=== PATIENT | male | born 1960 | race Caucasian/White ===

== ENCOUNTER 2016-12-26 07:45 | Emergency (ER) | payer OTHER ==
[2016-12-26 08:07] LABS: BASOPHIL 0.4 % (0-2); EOSINOPHIL 1.7 % (0-5); HCT 40.1 % (42.0-52.0); HGB 14.6 g/dl (13.2-18.0); LYMPHOCYTE 14.8 % (15-48); MCH 29.9 pg (25.0-31.0); MCHC 36.4 g/dL (32.0-36.0); MONOCYTE 14.2 % (0-12); MPV 9.2 fL (6.0-9.5); NEUTROPHIL 68.9 % (41-80); PLT 301 K/uL (150-400); RBC 4.89 M/uL (4.70-6.00); RDW 13.4 % (11.5-14.0); WBC 7.8 K/uL (4.0-10.5)
[2016-12-26 08:26] LABS: CREATININE 0.8 mg/dL (0.7-1.2); POTASSIUM 3.7 mmol/L (3.5-5.1)
== END 2016-12-26 11:32 | disposition home or self-care (01) ==
LOC: FER 07:45
PROVIDERS: Internal Medicine
DX: F45.8 Other somatoform disorders (principal); I10 Essential (primary) hypertension; E78.5 Hyperlipidemia, unspecified; F41.9 Anxiety disorder, unspecified; Z87.442 Personal history of urinary calculi
CPT/HCPCS: 36415; 71010; 80048; 84484; 85025; 93005; J2060

== ENCOUNTER 2021-03-01 03:46 | Emergency (ER) | payer OTHER ==
[~2021-03-01 03:46] MED LIST: FLEXERIL5 MG PO; MEDROL 4MG DOSEP4 MG PO; NORVASC10 MG PO; PRILOSEC10 M1 PO; ZOCOR10 MG PO
[2021-03-01 04:06] LABS: BASOPHIL 0.3 % (0-2); EOSINOPHIL 1.2 % (0-5); HGB 14.7 g/dl (13.2-18.0); LYMPHOCYTE 10.3 % (15-48); MCHC 35.9 g/dL (32.0-36.0); MCV 83.7 fL (78.0-100.0); MONOCYTE 7.9 % (0-12); MPV 9.6 fL (6.0-9.5); NEUTROPHIL 80.1 % (41-80); NRBC 0; PLT 286 K/uL (150-400); WBC 12.6 K/uL (4.0-10.5)
[2021-03-01 04:17] LABS: PROTHROMBIN TIME 12.6 SECONDS (11.8-13.4); PTT 33.1 SECONDS (24.4-34.7)
[2021-03-01 04:28] LABS: IRON % SATURATION 10.1 %SAT (20-50)
[2021-03-01 04:31] LABS: BILIRUBIN NEGATIVE (NEGATIVE); BLOOD NEGATIVE Ery/uL (NEGATIVE); CLARITY CLEAR (CLEAR); COLOR YELLOW (YELLOW); GLUCOSE (U) NORMAL (NORMAL); LEUKOCYTES NEGATIVE Leu/uL (NEGATIVE); NITRITE NEGATIVE (NEGATIVE); PROTEIN NEGATIVE (NEGATIVE); pH 7.5 (5.0-9.0)
[2021-03-01 04:32] LABS: ALBUMIN 4.2 g/dL (3.4-5.0); ALKALINE PHOSHATASE 65 U/L (46-116); ALT 23 U/L (16-63); AST 20 U/L (15-37); BUN 6 mg/dL (7-18); BUN/CREAT RATIO (CALC) 6.7 RATIO; CHLORIDE 102 mmol/L (98-107); CO2 (BICARBONATE) 28 mmol/L (21-32); GLOBULIN (CALCULATION) 3.1 g/dL; GLUCOSE 117 mg/dL (74-106); LIPASE 108 U/L (73-393); MAGNESIUM 1.8 mg/dL (1.8-2.4); POTASSIUM 3.6 mmol/L (3.5-5.1); TOTAL PROTEIN 7.3 g/dL (6.4-8.2)
[2021-03-01 04:34] LABS: AMPHETAMINES NEGATIVE (NEGATIVE); BARBITURATES NEGATIVE (NEGATIVE); ECSTASY (MDMA) NEGATIVE (NEGATIVE); MARIJUANA (THC) NEGATIVE (NEGATIVE); METHADONE NEGATIVE (NEGATIVE); OPIATES NEGATIVE (NEGATIVE); OXYCODONE POSITIVE (NEGATIVE)
[2021-03-01 04:36] LABS: LACTIC ACID 0.9 mmol/L (0.4-1.9)
[2021-03-01 04:37] LABS: PRO-BNP 133 pg/mL (<125)
[2021-03-01 05:13] LABS: FT4 (FREE T4) 0.8 ng/dL (0.76-1.46)
[2021-03-01] MEDS ORDERED: IRON240 MG PO (06:40)
[2021-03-01] MEDS ORDERED: FEOSOL325 MG PO (06:52)
[2021-03-17] MEDS ORDERED: CYCLOBENZAPRINE10 MG PO (14:10)
[2021-03-17] MEDS ORDERED: CLONAZEPAM0.5 MG PO (14:11)
[2021-03-17] MEDS ORDERED: SINGULAIR10 MG PO (14:12)
[2021-03-17] MEDS ORDERED: ATARAX25 MG PO (14:12)
[2021-03-17] MEDS ORDERED: MOBIC7.5 MG PO (14:12)
[2021-03-17] MEDS ORDERED: TERAZOSIN HCL5 MG PO (14:13)
[2021-03-17] MEDS ORDERED: CRESTOR10 MG PO (14:13)
[2021-03-17] MEDS ORDERED: TRAZODONE HCL50 MG PO (14:13)
[2021-03-17] MEDS ORDERED: PRILOSEC20 MG PO (14:13)
[2021-03-25] MEDS ORDERED: PRILOSEC20 MG PO (08:40)
== END 2021-03-01 07:06 | disposition home or self-care (01) ==
LOC: FER 03:46
PROVIDERS: Emergency Medicine
DX: E61.1 Iron deficiency (principal); I10 Essential (primary) hypertension; Z79.899 Other long term (current) drug therapy
CPT/HCPCS: 36415; 71250; 80053; 80305; 81003; 83540; 83550; 83605; 83690; 83735; 83880; 84145; 84439; 84443; 84484; 85025; 85610; 85730; 87040; 93005; G0480; J2060

== ENCOUNTER → 2021-03-25 | Day surgery (SDC) | payer OTHER ==
[~2021-03-25] VITALS: Ht 175.3 cm; Wt 89.1 kg
[~2021-03-25] MED LIST changes: +ASPIRIN325 MG PO; +ATARAX25 MG PO; +CLONAZEPAM0.5 MG PO; +CRESTOR10 MG PO; +CYCLOBENZAPRINE10 MG PO; +FEOSOL325 MG PO; +FLONASE ALLER15.8 ML; +IRON240 MG PO; +MOBIC7.5 MG PO; +OXYCODONE-ACET1 EAC1 PO; +PRILOSEC20 MG PO; +SINGULAIR10 MG PO; +TERAZOSIN HCL5 MG PO; +TRAZODONE HCL50 MG PO
== END | disposition home or self-care (01) ==
LOC: FAS 06:45
DX: K29.50 Unspecified chronic gastritis without bleeding (principal); K31.89 Other diseases of stomach and duodenum; K63.5 Polyp of colon; K44.9 Diaphragmatic hernia without obstruction or gangrene; K29.70 Gastritis, unspecified, without bleeding; K59.89 Other specified functional intestinal disorders; E61.1 Iron deficiency; K21.9 Gastro-esophageal reflux disease without esophagitis; I10 Essential (primary) hypertension; E78.5 Hyperlipidemia, unspecified; E78.00 Pure hypercholesterolemia, unspecified; F41.9 Anxiety disorder, unspecified; J30.9 Allergic rhinitis, unspecified; M19.90 Unspecified osteoarthritis, unspecified site; Z79.899 Other long term (current) drug therapy; Z88.8 Allergy status to other drugs, medicaments and biological substances; Z87.891 Personal history of nicotine dependence
CPT/HCPCS: J2704; J7120

== ENCOUNTER 2021-05-03 07:37 | Day surgery (SDC) | payer OTHER ==
[~2021-05-03] VITALS: Ht 175 cm; Wt 88.5 kg
[~2021-05-03 07:37] MED LIST changes: -ASPIRIN325 MG PO; -FLONASE ALLER15.8 ML; -OXYCODONE-ACET1 EAC1 PO
[2021-05-03] MEDS ORDERED: FLONASE ALLER15.8 ML (08:14)
--- NOTE | 2021-05-03 16:07 | NUR ---
PT. HAD A JACQUARD LOOM HEDDLES TIER THIS DATE. PT. WILL D/C HOME ON 05/04/21. PT. IS REQUESTING [facility].
[2021-05-04 07:26] LABS: BASOPHIL 0.1 % (0-2); EOSINOPHIL 0.1 % (0-5); HCT 36.3 % (42.0-52.0); HGB 12.6 g/dl (13.2-18.0); LYMPHOCYTE 7.3 % (15-48); MCH 29.2 pg (25.0-31.0); MCHC 34.7 g/dL (32.0-36.0); MONOCYTE 11.1 % (0-12); MPV 9.4 fL (6.0-9.5); NEUTROPHIL 80.9 % (41-80); NRBC 0; PLT 248 K/uL (150-400); RBC 4.32 M/uL (4.70-6.00); RDW 13.3 % (11.5-14.0); WBC 13.7 K/uL (4.0-10.5)
[2021-05-04 08:00] LABS: BUN/CREAT RATIO (CALC) 13.6 RATIO; CREATININE 0.88 mg/dL (0.67-1.17); POTASSIUM 3.6 mmol/L (3.5-5.1)
[2021-05-04] MEDS ORDERED: OXYCODONE-ACET1 EAC1 PO (09:50)
[2021-05-04] MEDS ORDERED: ASPIRIN325 MG PO (09:50)
[2021-05-04] MEDS ORDERED: FEOSOL325 MG PO (09:50)
--- NOTE | 2021-05-04 15:32 | NUR ---
PT. D/C HOME THIS DATE WITH NO NEEDS.
== END 2021-05-04 11:40 | disposition home or self-care (01) ==
LOC: FAS 07:37 → FMS 10:00 → EDSTATUS 10:00 → FAS 05-04 11:40
PROVIDERS: Legal Medicine
DX: M75.101 Unspecified rotator cuff tear or rupture of right shoulder, not specified as traumatic (principal); M19.011 Primary osteoarthritis, right shoulder; I10 Essential (primary) hypertension; E78.5 Hyperlipidemia, unspecified; K21.9 Gastro-esophageal reflux disease without esophagitis; Z79.899 Other long term (current) drug therapy
CPT/HCPCS: 36415; 73020; 80048; 85025; 86850; 86900; 86901; 94010; 97162; 97166; 97530-GP; 97535; C1713; C1776; J0171; J0360; J0697; J1100; J1170; J1885; J2250; J2270; J2370; J2405; J2704; J2795; J3010; J3490; J7120

== ENCOUNTER 2021-05-08 10:50 | Emergency (ER) | payer OTHER ==
[~2021-05-08 10:50] MED LIST changes: +ASPIRIN325 MG PO; +FLONASE ALLER15.8 ML; +OXYCODONE-ACET1 EAC1 PO
== END 2021-05-08 13:40 | disposition home or self-care (01) ==
LOC: FER 10:50
DX: M25.511 Pain in right shoulder (principal); I10 Essential (primary) hypertension; Z98.890 Other specified postprocedural states
CPT/HCPCS: 99283

== ENCOUNTER 2022-02-12 23:53 | Emergency (ER) | payer OTHER ==
[2022-02-13 00:55] LABS: BASOPHIL 0.3 % (0-2); BILIRUBIN NEGATIVE (NEGATIVE); BLOOD NEGATIVE Ery/uL (NEGATIVE); CLARITY CLEAR (CLEAR); COLOR YELLOW (YELLOW); EOSINOPHIL 0.6 % (0-5); GLUCOSE (U) NORMAL (NORMAL); HCT 39.6 % (42.0-52.0); HGB 13.9 g/dl (13.2-18.0); LEUKOCYTES NEGATIVE Leu/uL (NEGATIVE); LYMPHOCYTE 7.8 % (15-48); MCHC 35.1 g/dL (32.0-36.0); MCV 85.5 fL (78.0-100.0); MONOCYTE 8.4 % (0-12); MPV 9.7 fL (6.0-9.5); NEUTROPHIL 82.4 % (41-80); NITRITE NEGATIVE (NEGATIVE); NRBC 0; PLT 208 K/uL (150-400); PROTEIN NEGATIVE (NEGATIVE); RBC 4.63 M/uL (4.70-6.00); RDW 13.5 % (11.5-14.0); SPECIFIC GRAVITY <=1.005 (1.001-1.030); UROBILINOGEN 0.2 mg/dL (0.2-1.0); WBC 11.8 K/uL (4.0-10.5)
[2022-02-13 01:12] LABS: ALBUMIN 3.5 g/dL (3.4-5.0); BILIRUBIN - TOTAL 0.5 mg/dL (0.2-1.0); BUN/CREAT RATIO (CALC) 12.6 RATIO; CREATININE 1.03 mg/dL (0.67-1.17); GLOBULIN (CALCULATION) 3.7 g/dL; POTASSIUM 3.2 mmol/L (3.5-5.1); TOTAL PROTEIN 7.2 g/dL (6.4-8.2)
[2022-02-13 01:33] LABS: CORONAVIRUS 2019 SARS-COV-2 NEGATIVE (NEGATIVE); INFLUENZA A NAA NEGATIVE (NEGATIVE)
[2022-02-13] MEDS ORDERED: VIBRAMYCIN100 MG PO (02:12)
== END 2022-02-13 02:20 | disposition home or self-care (01) ==
LOC: FER 23:53
PROVIDERS: Emergency Medicine
DX: J18.9 Pneumonia, unspecified organism (principal); M54.50 Low back pain, unspecified; I10 Essential (primary) hypertension; Z20.822 Contact with and (suspected) exposure to COVID-19
CPT/HCPCS: 36415; 71045; 80053; 81003; 85025; U0002

== ENCOUNTER 2022-03-22 20:31 | Emergency (ER) | payer OTHER ==
[~2022-03-22 20:31] MED LIST changes: +VIBRAMYCIN100 MG PO
[2022-03-22 21:15] LABS: BASOPHIL 0.4 % (0-2); EOSINOPHIL 1.3 % (0-5); HGB 15.3 g/dl (13.2-18.0); LYMPHOCYTE 13.6 % (15-48); MCH 30.2 pg (25.0-31.0); MCHC 35.6 g/dL (32.0-36.0); MONOCYTE 13.9 % (0-12); MPV 9.3 fL (6.0-9.5); NEUTROPHIL 70.5 % (41-80); NRBC 0; PLT 221 K/uL (150-400); RBC 5.06 M/uL (4.70-6.00); RDW 13.2 % (11.5-14.0); WBC 6.9 K/uL (4.0-10.5)
[2022-03-22 21:25] LABS: INR 0.96 (0.9-1.2); PROTHROMBIN TIME 12.5 SECONDS (11.9-13.9)
[2022-03-22 21:26] LABS: PTT 31.9 SECONDS (24.9-34.6)
[2022-03-22 21:37] LABS: ALBUMIN 4.2 g/dL (3.4-5.0); BUN/CREAT RATIO (CALC) 11.2 RATIO; CREATININE 0.98 mg/dL (0.67-1.17); GLOBULIN (CALCULATION) 3.3 g/dL; POTASSIUM 3.4 mmol/L (3.5-5.1); TOTAL PROTEIN 7.5 g/dL (6.4-8.2)
[2022-03-22 22:13] LABS: CORONAVIRUS 2019 SARS-COV-2 NEGATIVE (NEGATIVE); INFLUENZA A NAA NEGATIVE (NEGATIVE)
== END 2022-03-23 01:06 | disposition home or self-care (01) ==
LOC: FER 20:31
PROVIDERS: Emergency Medicine
DX: R07.89 Other chest pain (principal); K21.9 Gastro-esophageal reflux disease without esophagitis; I10 Essential (primary) hypertension; Z20.822 Contact with and (suspected) exposure to COVID-19
CPT/HCPCS: 36415; 71045; 80053; 83880; 84484; 85025; 85379; 85610; 85730; 93005; J2405; U0002